=== PATIENT | female | born 1990 | race Caucasian/White ===

== ENCOUNTER 2016-07-03 18:54 | Emergency (ER) | payer OTHER ==
[~2016-07-03] VITALS: Ht 162.6 cm; Wt 64.0 kg
[~2016-07-03 18:54] MED LIST: APAP/CODEINE ELI5 M1 OR; BACTRIM DS TAB1 EACH PO; COLACE 100 MG100 MG PO; FLEXERIL PO; IBUPROFEN 400400 M2 PO; IBUPROFEN 600600 M1 PO; IRON325 PO; METOCLOPRAMIDE10 MG PO; NAPROSYN500 MG PO; NOHOMEMEDICATIONS; NORCO 5-325 TA1 EACH PO; PENICILLIN V P500 MG PO; PHENERGAN50 MG RC; PRENATAL GUMMIES PO; PYRIDIUM200 MG PO; TYLENOL EXTRA500 MG PO; ULTRAM 50MG TAB50 MG PO; UNICOMPLEX M TA1 TA1 PO; VENTOLIN HFA 1818 GM INH; ZANTAC 150MG T150 MG PO; ZOFRAN ODT4 MG PO; ZOFRAN ODT4 MG SUBLING; ZOFRAN ODT8 MG PO; ZPAK PO
[2016-07-03] MEDS ORDERED: PENICILLIN V P500 MG PO (19:10)
[2016-07-03] MEDS ORDERED: MOBIC15 MG PO (19:10)
== END 2016-07-03 20:31 | disposition home or self-care (01) ==
LOC: ER 18:54
DX: S02.5XXA Fracture of tooth (traumatic), initial encounter for closed fracture (principal); K02.9 Dental caries, unspecified; K08.89 Other specified disorders of teeth and supporting structures; Z90.49 Acquired absence of other specified parts of digestive tract; Z98.890 Other specified postprocedural states; Z87.891 Personal history of nicotine dependence; X58.XXXA Exposure to other specified factors, initial encounter; Y93.89 Activity, other specified; Y92.89 Other specified places as the place of occurrence of the external cause; Y99.8 Other external cause status

== ENCOUNTER 2016-12-02 16:00 | Emergency (ER) | payer OTHER ==
[~2016-12-02] VITALS: Ht 162.6 cm; Wt 63.5 kg
[~2016-12-02 16:00] MED LIST changes: +MOBIC15 MG PO
== END 2016-12-02 18:06 | disposition home or self-care (01) ==
LOC: ER 16:00
DX: G43.909 Migraine, unspecified, not intractable, without status migrainosus (principal); Z98.890 Other specified postprocedural states; Z87.891 Personal history of nicotine dependence

== ENCOUNTER 2017-01-25 16:34 | Inpatient (IN) | payer OTHER ==
[~2017-01-25] VITALS: Ht 165.1 cm; Wt 68.9 kg
[2017-01-25 16:35] VITALS: BP 129/70
[2017-01-25 17:39] LABS: HEMATOCRIT 37.7 % (37.0-47.0); HEMOGLOBIN 12.7 gm/dL (12.0-15.0); MCH 29.9 pg (26.0-34.0); MCHC 33.8 g/dL (28.0-37.0); MCV 88.3 fL (80.0-100.0); PLATELET COUNT 325 thou/uL (150-400); RBC 4.27 mil/uL (4.20-5.00); RDW 13.4 % (10.5-14.5); WBC 19.6 thou/uL (4.0-11.0)
[2017-01-25 17:40] LABS: MANUAL DIFF YES
[2017-01-25 17:47] LABS: CALCIUM 9.5 mg/dL (8.5-10.1); CREATININE 0.8 mg/dL (0.6-1.0); POTASSIUM 3.2 mmol/L (3.5-5.1)
[2017-01-25 17:53] LABS: ALBUMIN 4.6 g/dL (3.4-5.0); TOTAL BILIRUBIN 1.5 mg/dL (<0.1-1.0)
[2017-01-25 18:05] LABS: TOTAL CELL COUNT 100
[2017-01-25] MEDS ORDERED: SERTRALINE HCL50 MG PO (18:55)
[2017-01-25] MEDS ORDERED: NEURONTIN 300300 M1 PO (18:55)
[2017-01-25 20:13] LABS: URINE BILIRUBIN NEGATIVE (Negative); URINE BLOOD NEGATIVE (Negative); URINE COLOR YELLOW; URINE GLUCOSE-RANDOM* NEGATIVE (Negative); URINE KETONES 1+ (Negative); URINE NITRITE NEGATIVE (Negative); URINE PROTEIN (DIPSTICK) TRACE (Negative); URINE UROBILINOGEN 0.2 E.U./dl (0.2-1.0)
[2017-01-25 20:21] LABS: AMP/METHAMP Negative (Negative); BARBITURATES Negative (Negative); BENZODIAZEPINES Negative (Negative); COCAINE Negative (Negative); METHADONE Negative (Negative); OPIATES Negative (Negative); PCP Negative (Negative); THC POSITIVE (Negative)
[2017-01-25 20:29] VITALS: BP 128/62
[2017-01-25 20:37] VITALS: BP 98/73
[2017-01-26 04:28] LABS: HEMATOCRIT 31.5 % (37.0-47.0); MCH 30.3 pg (26.0-34.0); MCHC 33.9 g/dL (28.0-37.0); MCV 89.4 fL (80.0-100.0); RBC 3.52 mil/uL (4.20-5.00); RDW 13.5 % (10.5-14.5); WBC 9.2 thou/uL (4.0-11.0)
[2017-01-26 04:32] LABS: HEMOGLOBIN 10.7 gm/dL (12.0-15.0)
[2017-01-26 04:33] VITALS: BP 101/47
[2017-01-26 04:49] LABS: ALBUMIN 3.5 g/dL (3.4-5.0); CALCIUM 8.4 mg/dL (8.5-10.1); CREATININE 0.7 mg/dL (0.6-1.0); POTASSIUM 3.9 mmol/L (3.5-5.1); TOTAL BILIRUBIN 1.2 mg/dL (<0.1-1.0); TOTAL PROTEIN 6.3 g/dL (6.4-8.2)
[2017-01-26 08:09] VITALS: BP 118/71
[2017-01-26 15:46] VITALS: BP 108/66
[2017-01-26 20:04] VITALS: BP 116/77; BP 149/101
[2017-01-27 06:56] LABS: HEMATOCRIT 30.7 % (37.0-47.0); HEMOGLOBIN 10.4 gm/dL (12.0-15.0); MCH 30.2 pg (26.0-34.0); MCHC 33.9 g/dL (28.0-37.0); MCV 89.3 fL (80.0-100.0); RBC 3.44 mil/uL (4.20-5.00); WBC 5.6 thou/uL (4.0-11.0)
[2017-01-27 07:15] LABS: ALBUMIN 3.5 g/dL (3.4-5.0); CALCIUM 8.4 mg/dL (8.5-10.1); CREATININE 0.6 mg/dL (0.6-1.0); POTASSIUM 3.9 mmol/L (3.5-5.1); TOTAL BILIRUBIN 0.5 mg/dL (<0.1-1.0); TOTAL PROTEIN 6.2 g/dL (6.4-8.2)
[2017-01-27 08:26] VITALS: BP 112/83
[2017-01-27 12:23] VITALS: BP 116/77
== END 2017-01-27 13:12 | disposition home or self-care (01) | DRG 392 ==
LOC: ER 16:34 → 4N 20:09 → EROBS 20:09 → 4N 20:30 → ENTRNSPT 01-27 12:53 → EDTRNSPTSTS 01-27 12:56 → 4N 01-27 13:12
PROVIDERS: Hospitalist; Nurse Practitioner Family
DX: K52.9 Noninfective gastroenteritis and colitis, unspecified (principal); F41.9 Anxiety disorder, unspecified; F32.9 Major depressive disorder, single episode, unspecified; D72.829 Elevated white blood cell count, unspecified; E87.6 Hypokalemia; F12.10 Cannabis abuse, uncomplicated; M51.27 Other intervertebral disc displacement, lumbosacral region; F10.10 Alcohol abuse, uncomplicated; Y90.9 Presence of alcohol in blood, level not specified; Z90.49 Acquired absence of other specified parts of digestive tract; Z90.89 Acquired absence of other organs; Z82.3 Family history of stroke; Z83.3 Family history of diabetes mellitus; Z82.49 Family history of ischemic heart disease and other diseases of the circulatory system; Z87.891 Personal history of nicotine dependence; Z28.21 Immunization not carried out because of patient refusal
CPT/HCPCS: 10091

== ENCOUNTER 2017-05-13 04:01 | Emergency (ER) | payer OTHER ==
[~2017-05-13] VITALS: Ht 165.1 cm; Wt 63.5 kg
[~2017-05-13 04:01] MED LIST changes: +NEURONTIN 300300 M1 PO; +SERTRALINE HCL50 MG PO
[2017-05-13] MEDS ORDERED: NOHOMEMEDICATIONS (04:10)
[2017-05-13 04:19] LABS: ABSOLUTE NEUTROPHILS 15.8 thou/uL (1.4-8.2); BASOPHILS 0.5 % (0.0-2.0); EOSINOPHILS 0.8 % (0.0-3.0); HEMATOCRIT 35.7 % (37.0-47.0); HEMOGLOBIN 12.4 gm/dL (12.0-15.0); MCH 30.5 pg (26.0-34.0); MCHC 34.7 g/dL (28.0-37.0); MONOCYTES 5.8 % (1.0-8.0); PLATELET COUNT 322 thou/uL (150-400); POLYS 85.9 % (36.0-66.0); RBC 4.06 mil/uL (4.20-5.00); RDW 13.6 % (10.5-14.5); WBC 18.4 thou/uL (4.0-11.0)
[2017-05-13 04:26] LABS: CALCIUM 8.7 mg/dL (8.5-10.1); CREATININE 0.7 mg/dL (0.6-1.0); POTASSIUM 3.1 mmol/L (3.5-5.1)
[2017-05-13 04:32] LABS: ALBUMIN 4.3 g/dL (3.4-5.0); TOTAL BILIRUBIN 1.2 mg/dL (<0.1-1.0); TOTAL PROTEIN 7.5 g/dL (6.4-8.2)
[2017-05-13 05:23] LABS: URINE BILIRUBIN NEGATIVE (Negative); URINE BLOOD NEGATIVE (Negative); URINE CLARITY SL CLOUDY; URINE COLOR YELLOW; URINE GLUCOSE-RANDOM* NEGATIVE (Negative); URINE KETONES TRACE (Negative); URINE LEUKOCYTES-REFLEX NEGATIVE (Negative); URINE NITRITE-REFLEX NEGATIVE (Negative); URINE PROTEIN (DIPSTICK) TRACE (Negative); URINE UROBILINOGEN 0.2 E.U./dl (0.2-1.0)
[2017-05-13] MEDS ORDERED: BENTYL 20 MG TA20 M1 PO (06:00)
[2017-05-13] MEDS ORDERED: PHENERGAN 25 MG25 M1 PO (06:00)
[2017-05-13] MEDS ORDERED: ZOFRAN ODT4 MG PO (06:00)
[2017-05-13 06:10] LABS: AMP/METHAMP Negative (Negative); BARBITURATES Negative (Negative); BENZODIAZEPINES Negative (Negative); COCAINE Negative (Negative); METHADONE Negative (Negative); OPIATES Negative (Negative); PCP Negative (Negative)
[2017-05-13 06:30] VITALS: BP 127/66
== END 2017-05-13 06:31 | disposition home or self-care (01) ==
LOC: ER 04:01
PROVIDERS: Emergency Medicine
DX: K52.9 Noninfective gastroenteritis and colitis, unspecified (principal); Z90.49 Acquired absence of other specified parts of digestive tract; Z87.891 Personal history of nicotine dependence

== ENCOUNTER 2017-06-04 09:43 | Emergency (ER) | payer OTHER ==
[~2017-06-04] VITALS: Ht 165.1 cm; Wt 64.4 kg
[~2017-06-04 09:43] MED LIST changes: +BENTYL 20 MG TA20 M1 PO; +PHENERGAN 25 MG25 M1 PO
[2017-06-04 10:04] VITALS: BP 112/67
[2017-06-04] MEDS ORDERED: NORCO 5-325 TA1 EACH PO (10:07)
== END 2017-06-04 10:26 | disposition home or self-care (01) ==
LOC: ER 09:43
DX: M54.9 Dorsalgia, unspecified (principal); F41.9 Anxiety disorder, unspecified; F32.9 Major depressive disorder, single episode, unspecified; Z87.891 Personal history of nicotine dependence; Z90.49 Acquired absence of other specified parts of digestive tract

== ENCOUNTER 2018-02-21 09:34 | Emergency (ER) | payer OTHER ==
[~2018-02-21] VITALS: Ht 165.1 cm; Wt 66.7 kg
[2018-02-21 09:39] VITALS: BP 105/49
[2018-02-21] MEDS ORDERED: ZOLOFT50 MG PO (09:42)
[2018-02-21] MEDS ORDERED: MOBIC7.5 MG PO (09:53)
[2018-02-21] MEDS ORDERED: ZYRTEC10 M2 PO (09:53)
== END 2018-02-21 10:00 | disposition home or self-care (01) ==
LOC: ER 09:34
DX: H69.93 Unspecified Eustachian tube disorder, bilateral (principal); R09.81 Nasal congestion; F41.9 Anxiety disorder, unspecified; F32.9 Major depressive disorder, single episode, unspecified; Z87.891 Personal history of nicotine dependence; Z90.49 Acquired absence of other specified parts of digestive tract